=== PATIENT | male | born 1990 | race Caucasian/White ===

== ENCOUNTER 2021-12-22 20:47 | Emergency (ER) | payer MEDICAID ==
[2021-12-22] MEDS ORDERED: Clindamycin HCl 150 MG Cap PO ONE (21:52)
[2021-12-22] MEDS ORDERED: Acetaminophen/Codeine 300-30 MG Tab PO ONE (21:53)
[2021-12-22] MEDS ORDERED: Ketorolac 60 MG/2 ML SDV IM ONE (21:53)
== END 2021-12-22 22:20 | disposition home or self-care (01) ==
LOC: JD.ED 20:47
DX: K02.9 Dental caries, unspecified (principal); F17.210 Nicotine dependence, cigarettes, uncomplicated
CPT/HCPCS: 96372; 99282; A9270; J1885

== ENCOUNTER 2022-05-12 09:52 | Emergency (ER) | payer SELFPAY | END 2022-05-12 10:57 | disposition home or self-care (01) | LOC: JD.ED 09:52 | DX: K04.7 Periapical abscess without sinus (principal); Z79.899 Other long term (current) drug therapy; Z72.0 Tobacco use | CPT/HCPCS: 99282 ==

== ENCOUNTER 2022-07-06 00:04 | Emergency (ER) | payer SELFPAY ==
[2022-07-06] MEDS ORDERED: cefTRIAXone 1 GM Vial IM ONE (00:21)
[2022-07-06] MEDS ORDERED: traMADol 50 MG Tab PO ONE (00:22)
== END 2022-07-06 00:51 | disposition home or self-care (01) ==
LOC: JD.ED 00:04
DX: K02.9 Dental caries, unspecified (principal)
CPT/HCPCS: 96372; 99283; A9270; J0696

== ENCOUNTER 2025-02-27 22:36 | Emergency (ER) | payer MEDICAID ==
[2025-02-27] MEDS: Acetaminophen/oxyCODONE 325-5 MG Tab PO ONE (23:05)
[2025-02-27] MEDS: Ketorolac 60 MG/2 ML SDV IM ONE (23:07)
[2025-02-27] MEDS: cefTRIAXone 1 GM, Lidocaine 1% 2.1 ML IM ONE (23:14)
== END 2025-02-27 23:23 | disposition home or self-care (01) ==
LOC: JD.ED 22:36
DX: K04.7 Periapical abscess without sinus (principal); M27.3 Alveolitis of jaws; L03.211 Cellulitis of face
CPT/HCPCS: 96372; 99283; A9270; J0696; J1885; J2003; 99284

== ENCOUNTER 2025-03-24 22:59 | Emergency (ER) | payer SELFPAY ==
[2025-03-25] MEDS: Ketorolac 30 MG/ML SDV IM ONE (00:05)
[2025-03-25] MEDS: Acetaminophen/HYDROcodone 325-5 MG Tab PO ONE (00:05)
== END 2025-03-25 00:12 | disposition home or self-care (01) ==
LOC: JD.ED 22:59
DX: K02.9 Dental caries, unspecified (principal)
CPT/HCPCS: 96372; 99282; A9270; J1885; 99284